=== PATIENT | male | born 1950 | race Caucasian/White ===

== ENCOUNTER 2018-10-04 16:54 | Outpatient (CLI) | payer MEDICARE, OTHER ==
[2018-10-04 17:27] LABS: CREATININE 1.22 mg/dL (0.7-1.3)
[2018-10-04] MEDS ORDERED: OMNIPAQUE 350 MG/ML, 100ML BOTTLE ONE (18:20)
[2018-11-06] MEDS ORDERED: LISI-167 PO (08:30)
[2018-11-13] MEDS ORDERED: none per pt (14:57)
== END 2018-10-04 23:59 | disposition home or self-care (01) ==
LOC: RAD 16:54
PROVIDERS: ATTEND Internal Medicine Geriatric Medicine
DX: C78.6 Secondary malignant neoplasm of retroperitoneum and peritoneum (principal); C79.89 Secondary malignant neoplasm of other specified sites; C15.9 Malignant neoplasm of esophagus, unspecified; K76.89 Other specified diseases of liver; N28.89 Other specified disorders of kidney and ureter; R59.0 Localized enlarged lymph nodes; E27.8 Other specified disorders of adrenal gland
CPT/HCPCS: 36415; 71260; 74177; 82565; Q9967

== ENCOUNTER → 2019-01-16 | Outpatient (CLI) | payer MEDICARE, OTHER ==
[~2019-01-16] MED LIST: LISI-167 PO; OMNIPAQUE 350 MG/ML, 100ML BOTTLE ONE; none per pt
== END | disposition home or self-care (01) ==
LOC: RAD 10:38
PROVIDERS: ATTEND Specialist
DX: C15.5 Malignant neoplasm of lower third of esophagus (principal); K76.89 Other specified diseases of liver; Z85.05 Personal history of malignant neoplasm of liver; Z87.891 Personal history of nicotine dependence
CPT/HCPCS: 71260; 74160; Q9967

== ENCOUNTER → 2019-01-24 | Outpatient (CLI) | payer MEDICARE, OTHER ==
[~2019-01-24] MED LIST changes: -OMNIPAQUE 350 MG/ML, 100ML BOTTLE ONE
== END | disposition home or self-care (01) ==
LOC: RAD 14:53
PROVIDERS: ATTEND Specialist
DX: M79.89 Other specified soft tissue disorders (principal); M79.671 Pain in right foot; C15.5 Malignant neoplasm of lower third of esophagus; Z45.2 Encounter for adjustment and management of vascular access device; Z51.11 Encounter for antineoplastic chemotherapy; D70.9 Neutropenia, unspecified; D70.1 Agranulocytosis secondary to cancer chemotherapy; D69.6 Thrombocytopenia, unspecified; Z87.891 Personal history of nicotine dependence

== ENCOUNTER 2019-03-14 12:35 | Outpatient (CLI) | payer MEDICARE, OTHER ==
[2019-03-14] MEDS ORDERED: OMNIPAQUE 350 MG/ML, 100ML BOTTLE ONE (15:00)
== END 2019-03-14 23:59 | disposition home or self-care (01) ==
LOC: CFH 12:35
PROVIDERS: ATTEND Specialist
DX: C15.5 Malignant neoplasm of lower third of esophagus (principal); I25.10 Atherosclerotic heart disease of native coronary artery without angina pectoris; I70.0 Atherosclerosis of aorta
CPT/HCPCS: 71260; 74160; 82565; Q9967

== ENCOUNTER → 2019-06-09 | Outpatient (CLI) | payer MEDICARE, OTHER ==
[~2019-06-09] MED LIST changes: +OMNIPAQUE 350 MG/ML, 100ML BOTTLE ONE
== END | disposition home or self-care (01) ==
LOC: CFH 14:16
PROVIDERS: ATTEND Specialist
DX: C15.5 Malignant neoplasm of lower third of esophagus (principal); J98.4 Other disorders of lung; N28.89 Other specified disorders of kidney and ureter; R16.1 Splenomegaly, not elsewhere classified
CPT/HCPCS: 71260; 74160; Q9967

== ENCOUNTER → 2019-07-16 | Outpatient (CLI) | payer MEDICARE, OTHER ==
[~2019-07-16] MED LIST changes: -OMNIPAQUE 350 MG/ML, 100ML BOTTLE ONE
== END | disposition home or self-care (01) ==
LOC: CFH 14:42
PROVIDERS: ATTEND Specialist
DX: C15.5 Malignant neoplasm of lower third of esophagus (principal)
CPT/HCPCS: 71046

== ENCOUNTER → 2019-09-08 | Outpatient (CLI) | payer MEDICARE, OTHER ==
[~2019-09-08] MED LIST changes: +OMNIPAQUE 350 MG/ML, 100ML BOTTLE ONE
== END | disposition home or self-care (01) ==
LOC: RAD 11:36
PROVIDERS: ATTEND Specialist
DX: C15.5 Malignant neoplasm of lower third of esophagus (principal); C78.7 Secondary malignant neoplasm of liver and intrahepatic bile duct; R59.0 Localized enlarged lymph nodes; J92.9 Pleural plaque without asbestos; R16.1 Splenomegaly, not elsewhere classified; R18.8 Other ascites; Q25.49 Other congenital malformations of aorta
CPT/HCPCS: 71260; 74177; Q9967

== ENCOUNTER → 2019-09-15 | Outpatient (CLI) | payer MEDICARE, OTHER ==
[~2019-09-15] MED LIST changes: +LIDOCAINE 1%, 10ML ONE; -OMNIPAQUE 350 MG/ML, 100ML BOTTLE ONE
== END | disposition home or self-care (01) ==
LOC: RAD 11:11
PROVIDERS: ATTEND Specialist
DX: R18.8 Other ascites (principal); C15.5 Malignant neoplasm of lower third of esophagus; Z72.89 Other problems related to lifestyle; Z87.891 Personal history of nicotine dependence
CPT/HCPCS: 49083; 82945; 83615; 84157; 88112; 88305; 89051

== ENCOUNTER → 2019-10-03 | Outpatient (CLI) | payer MEDICARE, OTHER | END | disposition home or self-care (01) | LOC: RAD 10:36 | PROVIDERS: ATTEND Specialist | DX: R18.8 Other ascites (principal); C15.5 Malignant neoplasm of lower third of esophagus; Z72.89 Other problems related to lifestyle; Z87.891 Personal history of nicotine dependence; Z85.05 Personal history of malignant neoplasm of liver | CPT/HCPCS: 49083 ==

== ENCOUNTER → 2019-10-17 | Outpatient (CLI) | payer MEDICARE, OTHER | END | disposition home or self-care (01) | LOC: RAD 11:33 | PROVIDERS: ATTEND Specialist | DX: R18.8 Other ascites (principal); C15.5 Malignant neoplasm of lower third of esophagus | CPT/HCPCS: 49083 ==

== ENCOUNTER → 2019-10-23 | Outpatient (CLI) | payer MEDICARE, OTHER ==
[~2019-10-23] MED LIST changes: +CEFAZOLIN PMX 1GM/50ML 50 ML ONE; +FENTANYL PF 100 MCG/2ML ONE; +FLUMAZENIL 0.1 MG/1 ML, 5ML ONE; +MIDAZOLAM 1 MG/ML, 5ML ONE; +NALOXONE 1 MG/ML, 2ML ONE
== END | disposition home or self-care (01) ==
LOC: RAD 14:19
PROVIDERS: ATTEND Specialist
DX: R18.8 Other ascites (principal); C15.5 Malignant neoplasm of lower third of esophagus; Z72.89 Other problems related to lifestyle; Z87.891 Personal history of nicotine dependence
CPT/HCPCS: 49083; J0690; J2250; J3010; J2310

== ENCOUNTER 2019-10-24 09:56 | Day surgery (SDC) | payer MEDICARE, OTHER ==
[~2019-10-24] VITALS: Ht 177.8 cm; Wt 64.7 kg
[~2019-10-24 09:56] MED LIST changes: -CEFAZOLIN PMX 1GM/50ML 50 ML ONE; -FENTANYL PF 100 MCG/2ML ONE; -FLUMAZENIL 0.1 MG/1 ML, 5ML ONE; -LIDOCAINE 1%, 10ML ONE; -MIDAZOLAM 1 MG/ML, 5ML ONE; -NALOXONE 1 MG/ML, 2ML ONE
[2019-10-24 10:29] VITALS: BP 128/87
[2019-10-24] MEDS ORDERED: SODIUM CHLORIDE 0.9% 1,000 ML IV SCH (11:04)
[2019-10-24] MEDS ORDERED: LIDOCAINE 1%, 20ML ONE (12:49)
[2019-10-24] MEDS ORDERED: LIDOCAINE GEL 2%, 5ML ONE (12:50)
== END 2019-10-24 15:05 | disposition home or self-care (01) ==
LOC: OUT 09:56
PROVIDERS: ATTEND Specialist
DX: Z43.1 Encounter for attention to gastrostomy (principal); C15.5 Malignant neoplasm of lower third of esophagus; F10.10 Alcohol abuse, uncomplicated; I10 Essential (primary) hypertension; E78.5 Hyperlipidemia, unspecified; Z90.49 Acquired absence of other specified parts of digestive tract; Z98.52 Vasectomy status; Z98.890 Other specified postprocedural states; Z87.891 Personal history of nicotine dependence; Z79.899 Other long term (current) drug therapy
CPT/HCPCS: 49440; 99156; 99157; C1725; C1729; C1751; C1769; J7030; J0690

== ENCOUNTER 2019-10-28 13:10 | Emergency (ER) | payer MEDICARE, OTHER ==
[~2019-10-28] VITALS: Ht 177.8 cm; Wt 66.2 kg
--- NOTE | 2019-10-28 13:33 | NUR ---
Pt arrives to ed after calling his doctor and mentioned that PEG tube was bleeding at the site. Pt reports also he feels like his abdomen is stiff and full. Pt also reports that his doctor mentioned a possible need for paracentesis. Pt reports he is recieving chemo therapy for esophageal cancer. Pt resting in bed. Pt appears tried and weak in energy but to be expected with a patient receiving chemo therapy. Pt resting in bed. Awaiting further orders.
[2019-10-28] MEDS ORDERED: LIDOCAINE 1%, 10ML ONE (13:50)
--- NOTE | 2019-10-28 14:00 | NUR ---
Pt at IR
[2019-10-28 15:13] VITALS: BP 105/89
--- NOTE | 2019-10-28 15:14 | NUR ---
Pt back from IR, Pt had 3.7liters removed in paracentesis. Pt vitals WNL, pt reports he feels better.
--- NOTE | 2019-10-28 15:43 | NUR ---
Patient/Caregiver given discharge instructions and they have confirmed that they understand the instructions. Patient ambulatory with steady gait.
== END 2019-10-28 16:06 | disposition home or self-care (01) ==
LOC: ED 13:45
DX: K94.23 Gastrostomy malfunction (principal); R63.5 Abnormal weight gain; R00.0 Tachycardia, unspecified; Z85.01 Personal history of malignant neoplasm of esophagus
CPT/HCPCS: 49083; 49465; 76000; 99285; J3490

== ENCOUNTER → 2019-11-04 | Outpatient (CLI) | payer MEDICARE, OTHER ==
[~2019-11-04] MED LIST changes: +LIDOCAINE 1%, 10ML ONE
== END | disposition home or self-care (01) ==
LOC: RAD 12:31
PROVIDERS: ATTEND Specialist
DX: R18.8 Other ascites (principal); C15.5 Malignant neoplasm of lower third of esophagus
CPT/HCPCS: 49083

== ENCOUNTER 2019-11-06 08:53 | Outpatient (CLI) | payer MEDICARE, OTHER ==
[~2019-11-06 08:53] MED LIST changes: -LIDOCAINE 1%, 10ML ONE
[2019-11-06] MEDS ORDERED: OMNIPAQUE 350 MG/ML, 100ML BOTTLE ONE (09:48)
== END 2019-11-06 23:59 | disposition home or self-care (01) ==
LOC: CFH 08:53
PROVIDERS: ATTEND Specialist
DX: C15.5 Malignant neoplasm of lower third of esophagus (principal); K76.0 Fatty (change of) liver, not elsewhere classified; K44.9 Diaphragmatic hernia without obstruction or gangrene; I25.10 Atherosclerotic heart disease of native coronary artery without angina pectoris; I70.0 Atherosclerosis of aorta; R59.0 Localized enlarged lymph nodes; J90 Pleural effusion, not elsewhere classified; M51.34 Other intervertebral disc degeneration, thoracic region; E27.9 Disorder of adrenal gland, unspecified; R18.8 Other ascites; N28.1 Cyst of kidney, acquired
CPT/HCPCS: 71260; 74160; Q9967

== ENCOUNTER → 2019-11-07 | Outpatient (CLI) | payer MEDICARE, OTHER ==
[~2019-11-07] MED LIST changes: +LIDOCAINE 1%, 10ML ONE
== END | disposition home or self-care (01) ==
LOC: RAD 11:35
PROVIDERS: ATTEND Specialist
DX: R18.8 Other ascites (principal); C15.5 Malignant neoplasm of lower third of esophagus
CPT/HCPCS: 49083

== ENCOUNTER → 2019-11-11 | Outpatient (CLI) | payer MEDICARE, OTHER | END | disposition home or self-care (01) | LOC: RAD 14:12 | PROVIDERS: ATTEND Specialist | DX: R18.8 Other ascites (principal); C15.5 Malignant neoplasm of lower third of esophagus | CPT/HCPCS: 49083 ==

== ENCOUNTER → 2019-11-14 | Outpatient (CLI) | payer MEDICARE, OTHER | END | disposition home or self-care (01) | LOC: RAD 11:54 | PROVIDERS: ATTEND Specialist | DX: R18.8 Other ascites (principal) | CPT/HCPCS: 49083 ==

== ENCOUNTER → 2019-11-19 | Outpatient (CLI) | payer MEDICARE, OTHER | END | disposition home or self-care (01) | LOC: RAD 12:31 | PROVIDERS: ATTEND Specialist | DX: R18.0 Malignant ascites (principal) | CPT/HCPCS: 49083 ==

== ENCOUNTER 2019-11-24 10:20 | Outpatient (CLI) | payer MEDICARE, OTHER | END 2019-11-24 23:59 | disposition home or self-care (01) | LOC: RAD 10:20 | PROVIDERS: ATTEND Specialist | DX: R18.0 Malignant ascites (principal); C15.5 Malignant neoplasm of lower third of esophagus | CPT/HCPCS: 49083 ==

== ENCOUNTER 2019-11-28 12:37 | Outpatient (CLI) | payer MEDICARE, OTHER ==
[~2019-11-28 12:37] MED LIST changes: -LIDOCAINE 1%, 10ML ONE
[2019-11-28] MEDS ORDERED: LIDOCAINE 1%, 10ML ONE (13:02)
== END 2019-11-28 23:59 | disposition home or self-care (01) ==
LOC: RAD 12:37
PROVIDERS: ATTEND Specialist
DX: R18.8 Other ascites (principal); C15.5 Malignant neoplasm of lower third of esophagus
CPT/HCPCS: 49083

== ENCOUNTER → 2019-12-03 | Outpatient (CLI) | payer MEDICARE, OTHER ==
[~2019-12-03] MED LIST changes: +LIDOCAINE 1%, 10ML ONE
== END | disposition home or self-care (01) ==
LOC: RAD 14:01
PROVIDERS: ATTEND Specialist
DX: C15.5 Malignant neoplasm of lower third of esophagus (principal)
CPT/HCPCS: 49083

== ENCOUNTER 2019-12-08 09:52 | Outpatient (CLI) | payer MEDICARE, OTHER ==
[~2019-12-08 09:52] MED LIST changes: -LIDOCAINE 1%, 10ML ONE
[2019-12-08] MEDS ORDERED: LIDOCAINE 1%, 10ML ONE (10:17)
== END 2019-12-08 23:59 | disposition home or self-care (01) ==
LOC: RAD 09:52
PROVIDERS: ATTEND Specialist
DX: C15.5 Malignant neoplasm of lower third of esophagus (principal); R18.0 Malignant ascites
CPT/HCPCS: 49083

== ENCOUNTER 2019-12-12 14:01 | Outpatient (CLI) | payer MEDICARE, OTHER ==
[2019-12-12] MEDS ORDERED: LIDOCAINE 1%, 10ML ONE (14:18)
== END 2019-12-12 23:59 | disposition home or self-care (01) ==
LOC: RAD 14:01
PROVIDERS: ATTEND Specialist
DX: C15.5 Malignant neoplasm of lower third of esophagus (principal); Z87.891 Personal history of nicotine dependence; Z85.05 Personal history of malignant neoplasm of liver
CPT/HCPCS: 49083

== ENCOUNTER → 2019-12-17 | Outpatient (CLI) | payer MEDICARE, OTHER ==
[~2019-12-17] MED LIST changes: +LIDOCAINE 1%, 10ML ONE
== END | disposition home or self-care (01) ==
LOC: RAD 12:36
PROVIDERS: ATTEND Specialist
DX: R18.8 Other ascites (principal); C15.5 Malignant neoplasm of lower third of esophagus; Z87.891 Personal history of nicotine dependence
CPT/HCPCS: 49083

== ENCOUNTER → 2019-12-22 | Outpatient (CLI) | payer MEDICARE, OTHER | END | disposition home or self-care (01) | LOC: RAD 15:03 | PROVIDERS: ATTEND Specialist | DX: C15.5 Malignant neoplasm of lower third of esophagus (principal) | CPT/HCPCS: 49083 ==

== ENCOUNTER → 2019-12-26 | Outpatient (CLI) | payer MEDICARE, OTHER ==
[~2019-12-26] MED LIST changes: +OMNIPAQUE 350 MG/ML, 100ML BOTTLE ONE
== END | disposition home or self-care (01) ==
LOC: RAD 14:07
PROVIDERS: ATTEND Specialist
DX: C15.5 Malignant neoplasm of lower third of esophagus (principal); C78.7 Secondary malignant neoplasm of liver and intrahepatic bile duct; C79.89 Secondary malignant neoplasm of other specified sites; C79.70 Secondary malignant neoplasm of unspecified adrenal gland; R18.8 Other ascites; R59.0 Localized enlarged lymph nodes; K22.8 Other specified diseases of esophagus
CPT/HCPCS: 49083; 71260; 74160; Q9967

== ENCOUNTER 2019-12-31 12:31 | Outpatient (CLI) | payer MEDICARE, OTHER ==
[~2019-12-31 12:31] MED LIST changes: -LIDOCAINE 1%, 10ML ONE; -OMNIPAQUE 350 MG/ML, 100ML BOTTLE ONE
== END 2019-12-31 23:59 | disposition home or self-care (01) ==
LOC: RAD 12:31
PROVIDERS: ATTEND Specialist
DX: C15.5 Malignant neoplasm of lower third of esophagus (principal); R18.0 Malignant ascites; C78.7 Secondary malignant neoplasm of liver and intrahepatic bile duct; C79.70 Secondary malignant neoplasm of unspecified adrenal gland; I10 Essential (primary) hypertension; E78.5 Hyperlipidemia, unspecified; G62.9 Polyneuropathy, unspecified; Z87.891 Personal history of nicotine dependence; Z90.49 Acquired absence of other specified parts of digestive tract; Z98.890 Other specified postprocedural states; Z82.49 Family history of ischemic heart disease and other diseases of the circulatory system
CPT/HCPCS: 49083

== ENCOUNTER → 2020-01-05 | Outpatient (CLI) | payer MEDICARE, OTHER ==
[~2020-01-05] MED LIST changes: +LIDOCAINE 1%, 10ML ONE
== END | disposition home or self-care (01) ==
LOC: RAD 11:45
PROVIDERS: ATTEND Specialist
DX: R18.8 Other ascites (principal); C15.5 Malignant neoplasm of lower third of esophagus
CPT/HCPCS: 49083

== ENCOUNTER 2020-01-09 13:09 | Outpatient (CLI) | payer MEDICARE, OTHER ==
[~2020-01-09 13:09] MED LIST changes: -LIDOCAINE 1%, 10ML ONE
[2020-01-09] MEDS ORDERED: LIDOCAINE 1%, 10ML ONE (13:11)
== END 2020-01-09 23:59 | disposition home or self-care (01) ==
LOC: RAD 13:09
PROVIDERS: ATTEND Specialist
DX: C15.5 Malignant neoplasm of lower third of esophagus (principal)
CPT/HCPCS: 49083

== ENCOUNTER → 2020-01-14 | Outpatient (CLI) | payer MEDICARE, OTHER ==
[~2020-01-14] MED LIST changes: +LIDOCAINE 1%, 10ML ONE
== END | disposition home or self-care (01) ==
LOC: RAD 12:03
PROVIDERS: ATTEND Specialist
DX: R18.8 Other ascites (principal); C15.5 Malignant neoplasm of lower third of esophagus; Z87.891 Personal history of nicotine dependence
CPT/HCPCS: 49083

== ENCOUNTER 2020-01-19 11:51 | Outpatient (CLI) | payer MEDICARE, OTHER ==
[~2020-01-19 11:51] MED LIST changes: -LIDOCAINE 1%, 10ML ONE
[2020-01-19] MEDS ORDERED: LIDOCAINE 1%, 10ML ONE (12:01)
== END 2020-01-19 23:59 | disposition home or self-care (01) ==
LOC: RAD 11:51
PROVIDERS: ATTEND Specialist
DX: C15.5 Malignant neoplasm of lower third of esophagus (principal)
CPT/HCPCS: 49083

== ENCOUNTER → 2020-01-23 | Outpatient (CLI) | payer MEDICARE, OTHER ==
[~2020-01-23] MED LIST changes: +LIDOCAINE 1%, 10ML ONE
== END | disposition home or self-care (01) ==
LOC: RAD 11:36
PROVIDERS: ATTEND Specialist
DX: R18.8 Other ascites (principal); C15.5 Malignant neoplasm of lower third of esophagus
CPT/HCPCS: 49083

== ENCOUNTER → 2020-01-28 | Outpatient (CLI) | payer MEDICARE, OTHER | END | disposition home or self-care (01) | LOC: RAD 11:58 | PROVIDERS: ATTEND Specialist | DX: R18.0 Malignant ascites (principal); C15.5 Malignant neoplasm of lower third of esophagus; Z87.891 Personal history of nicotine dependence | CPT/HCPCS: 49083 ==

== ENCOUNTER 2020-02-02 10:17 | Day surgery (SDC) | payer MEDICARE, OTHER ==
[~2020-02-02] VITALS: Ht 177.8 cm; Wt 65.6 kg
[~2020-02-02 10:17] MED LIST changes: -LIDOCAINE 1%, 10ML ONE
[2020-02-02] MEDS ORDERED: SODIUM CHLORIDE 0.9% 1,000 ML IV SCH (10:37)
[2020-02-02 10:50] VITALS: BP 117/85
[2020-02-02] MEDS ORDERED: LIDOCAINE 1%, 20ML ONE (11:04)
[2020-02-02] MEDS ORDERED: FENTANYL PF 100 MCG/2ML ONE (11:18)
[2020-02-02] MEDS ORDERED: NALOXONE 1 MG/ML, 2ML ONE (11:18)
[2020-02-02] MEDS ORDERED: FLUMAZENIL 0.1 MG/1 ML, 5ML ONE (11:18)
[2020-02-02] MEDS ORDERED: MIDAZOLAM 1 MG/ML, 5ML ONE (11:18)
[2020-02-02] MEDS ORDERED: CEFAZOLIN PMX 1GM/50ML 50 ML ONE (11:47)
== END 2020-02-02 13:20 | disposition home or self-care (01) ==
LOC: OUT 10:17
PROVIDERS: ATTEND Specialist
DX: C15.5 Malignant neoplasm of lower third of esophagus (principal); C78.7 Secondary malignant neoplasm of liver and intrahepatic bile duct; C79.70 Secondary malignant neoplasm of unspecified adrenal gland; I10 Essential (primary) hypertension; E78.5 Hyperlipidemia, unspecified; Z87.891 Personal history of nicotine dependence; Z98.890 Other specified postprocedural states; Z82.49 Family history of ischemic heart disease and other diseases of the circulatory system
CPT/HCPCS: 49418; 99156; 99157; C1729; J0690; J2250; J3010; J7030; J2310